=== PATIENT | female | born 1995 | race Caucasian/White ===

== ENCOUNTER 2017-11-27 13:25 | Inpatient (IN) | payer MEDICAID, SELFPAY ==
[2017-11-27 12:18] VITALS: BMI 33.9
[2017-11-27 12:43] LABS: Hematocrit 32.4 % (37-47); Hemoglobin 11.2 g/dl (12.0-15.0); Mean Corp Hgb Conc 34.6 g/gl (32-36); Mean Corpuscular Hgb 28.9 pg (27.0-32.0); Mean Corpuscular Volume 83.7 fL (81-99); Mean Platelet Vol. 10.2 fl (6.2-12.0); Platelet Count 201 K/mm3 (150-450); RBC Distribution Width CV 14.1 % (11.6-14.6); Red Blood Count 3.87 M/mm3 (4.2-5.4); Scan Indicated on CBC? Y/N NO; White Blood Count 9.1 K/mm3 (4.4-11.0)
[2017-11-27 12:50] LABS: Prothrombin Time (Protime)PT. 12.8 SECONDS (11.7-14.9)
[2017-11-27 12:51] LABS: Partial Thromboplast Time 26.8 Seconds (24.1-36.2)
[2017-11-27 13:03] LABS: AST(SGOT) 16 U/L (15-37); Alanine Aminotransfer ALT/SGPT 14 U/L (13-56); Creatinine, Serum 0.42 mg/dL (0.55-1.02); EST Glomerular Filtration Rate 202 mL/min (>60); Est Glom Filt Rate - Afr Amer 244 mL/min (>60); Estimated Creatinine Clearance 200.02 ml/min; Uric Acid 3.7 mg/dL (2.6-6.0)
[2017-11-27] MEDS: Lactated Ringers 1,000 ML 50 ML IV (14:00)
[2017-11-27] MEDS: miSOPROStol 25 MCG TABLET VAGINAL ×2 (14:49→18:49)
--- NOTE | 2017-11-27 19:14 | PCM.HP.OB ---
History Date of Admission: 11/27/17 Final PETE: 12/10/17 Final PETE Source: US <20 weeks Gestational age: 38 Weeks and 1 Days History of this : 22-year-old 1 para 0 female presents from the office today at 38-1/7 weeks gestation. Denies any vaginal bleeding, leaking of fluid, fevers, chills, headache or epigastric pain. She has had good movement. Since for the office for gestational hypertension. Pertinent Past Medical History: Anxiety Past surgical history: None Family medical history noncontributory Allergies sulfamethoxazole [From Bactrim] Allergy (Verified 09/23/17 01:05) Rash trimethoprim [From Bactrim] Allergy (Verified 09/23/17 01:05) Rash Current Medications Acetaminophen (Tylenol) 325 - 650 mg PO Q4H PRN PRN PRN Reason: PAIN OR FEVER >100.4F Al Hydroxide/Mg Hydroxide (Mylanta Ii) 15 - 30 ml PO Q4H PRN PRN PRN Reason: INDIGESTION Citric Acid/Sodium Citrate (Bicitra) 30 ml PO UD PRN Lactated Ringer's () 1,000 mls @ 50 mls/hr IV .Q20H [facility] Last Admin: 11/27/17 14:00 Dose: 50 mls/hr Misoprostol (Cytotec) 25 mcg VAGINAL Q4H [facility] Stop: 11/28/17 10:26 Last Admin: 11/27/17 18:49 Dose: 25 mcg Nalbuphine HCl (Nubain) 5 - 10 mg IV Q3H PRN PRN PRN Reason: PAIN (4-10/10) Ondansetron HCl (Zofran) 4 mg IV Q8H PRN PRN PRN Reason: NAUSEA Promethazine HCl (Phenergan (Ll)) 6.25 - 12.5 mg IV Q4H PRN PRN; Protocol PRN Reason: IF NAUSEA PERSISTS Sodium Chloride () 5 - 15 ml IV UD [facility] Last Admin: 11/27/17 18:22 Dose: Not Given Smoking Status: Former smoker Alcohol: None Drug Use: none Number of Fetus(es): 1 Review of Systems Constitutional: Denies: Anorexia, Chills Eyes: Denies: Blurred vision, Double vision Cardiovascular: Denies: Chest Pain Respiratory: Denies: Cough, Shortness of Breath Gastrointestinal: Denies: Abdominal Pain Physical Exam General: Alert, Cooperative, No apparent distress Cardiovascular: Regular Rhythm Lungs: Normal air movement Abdomen: Soft, Non Tender, Non-Distended, Gravid, Appropriate for Gestational Age Extremities:: Other - edema 1+ Estimated gestational size: Appropriate for gestational size Presentation: Cephalic Cervix Dilation (cm): 1 Station: -3 Effacement (%): 50 Assessment/Plan 22-year-old 1 para 0 female with elevated blood pressures in the at 38-1/7 weeks gestation No evidence of preeclampsia but she does have gestational hypertension. Response and alternatives to induction of labor been discussed with patient her questions were answered to her satisfaction she desires to proceed. When active labor ensues or with rupture of membranes will start group B strep prophylaxis. Estimated weight is less than 5000 g and pelvis is clinically adequate to expect vaginal delivery. Will May have epidural or nitrous oxide or Nubain as needed for pain control. Will monitor for signs and symptoms of severe preeclampsia.
--- NOTE | 2017-11-27 19:18 | HP.PCM_ITS ---
History Date of Admission: 11/27/17 Final PETE: 12/10/17 Final PETE Source: US <20 weeks Gestational age: 38 Weeks and 1 Days History of this : 22-year-old 1 para 0 female presents from the office today at 38-1/7 weeks gestation. Denies any vaginal bleeding, leaking of fluid, fevers, chills , headache or epigastric pain. She has had good movement. Since for the office for gestational hypertension. Pertinent Past Medical History: Anxiety Past surgical history: None Family medical history noncontributory Allergies sulfamethoxazole [From Bactrim] Allergy (Verified 09/23/17 01:05) Rash trimethoprim [From Bactrim] Allergy (Verified 09/23/17 01:05) Rash Current Medications Acetaminophen (Tylenol) 325 - 650 mg PO Q4H PRN PRN PRN Reason: PAIN OR FEVER >100.4F Al Hydroxide/Mg Hydroxide (Mylanta Ii) 15 - 30 ml PO Q4H PRN PRN PRN Reason: INDIGESTION Citric Acid/Sodium Citrate (Bicitra) 30 ml PO UD PRN Lactated Ringer's () 1,000 mls @ 50 mls/hr IV .Q20H [facility] Last Admin: 11/27/17 14:00 Dose: 50 mls/hr Misoprostol (Cytotec) 25 mcg VAGINAL Q4H [facility] Stop: 11/28/17 10:26 Last Admin: 11/27/17 18:49 Dose: 25 mcg Nalbuphine HCl (Nubain) 5 - 10 mg IV Q3H PRN PRN PRN Reason: PAIN (4-10/10) Ondansetron HCl (Zofran) 4 mg IV Q8H PRN PRN PRN Reason: NAUSEA Promethazine HCl (Phenergan (Ll)) 6.25 - 12.5 mg IV Q4H PRN PRN; Protocol PRN Reason: IF NAUSEA PERSISTS Sodium Chloride () 5 - 15 ml IV UD [facility] Last Admin: 11/27/17 18:22 Dose: Not Given Smoking Status: Former smoker Alcohol: None Drug Use: none Number of Fetus(es): 1 Review of Systems Constitutional: Denies: Anorexia, Chills Eyes: Denies: Blurred vision, Double vision Cardiovascular: Denies: Chest Pain Respiratory: Denies: Cough, Shortness of Breath Gastrointestinal: Denies: Abdominal Pain Physical Exam General: Alert, Cooperative, No apparent distress Cardiovascular: Regular Rhythm Lungs: Normal air movement Abdomen: Soft, Non Tender, Non-Distended, Gravid, Appropriate for Gestational Age Extremities:: Other - edema 1+ Estimated gestational size: Appropriate for gestational size Presentation: Cephalic Cervix Dilation (cm): 1 Station: -3 Effacement (%): 50 Assessment/Plan 22-year-old 1 para 0 female with elevated blood pressures in the at 38-1 /7 weeks gestation No evidence of preeclampsia but she does have gestational hypertension. Response and alternatives to induction of labor been discussed with patient her questions were answered to her satisfaction she desires to proceed. When active labor ensues or with rupture of membranes will start group B strep prophylaxis. Estimated weight is less than 5000 g and pelvis is clinically adequate to expect vaginal delivery. Will May have epidural or nitrous oxide or Nubain as needed for pain control. Will monitor for signs and symptoms of severe preeclampsia.
--- NOTE | 2017-11-27 21:47 | PCM.PN.BLA ---
Progress Note Getting more uncomfortable, crampy. Some ctxs. BP stable FHTs category 1 Cervix now 1/60/-2, soft and mid position. Mesa placed over stylette in usual sterile fashion and inflated to 30 cc, placement over internal os confirmed. Patient tolerated well. Start pitocin in 2-4 hrs if needed. Epidural if desires
[2017-11-27] MEDS: 0.9% Normal Saline 100 ML IV.SOLN. INTRA-UTER (21:55)
[2017-11-28] MEDS: Oxytocin 30 units/NS 500 ml 30 UNITS/500 ML IV.SOLN IV (05:24)
[2017-11-28] MEDS: Lactated Ringers 1,000 ML 50 ML IV ×2 (06:30→10:36)
[2017-11-28] MEDS: Mag Hydrox/Al Hydrox/Simeth 30 ML UDC PO (06:30)
--- NOTE | 2017-11-28 07:43 | PCM.PN.BLA ---
Progress Note pt seen at bedside and evaluated. VE: -80/-2 AROM performed and IFM placed. Clear fluid. Continue Pitocin at this time.
[2017-11-28] MEDS: Nalbuphine 10 MG/ML Ampul IV (08:18)
[2017-11-28] MEDS: Ondansetron 4 MG/2 ML Vial IV (09:32)
--- NOTE | 2017-11-28 13:11 | PCM.PN.BLA ---
Progress Note pt seen at bedside, VE: /0 station. Continue to labor. Anticipate
[2017-11-28] MEDS: Oxytocin 30 units/NS 500 ml 30 UNITS/500 ML IV.SOLN 334 UNITS IV (14:44)
--- NOTE | 2017-11-28 14:52 | PCM.OB.VAG ---
Vaginal Delivery Maternal Presentation: Medically Indicated Induction Method of Induction: Pitocin, Mesa Bulb Medical Reason for Induction: Gestational Hypertension Amniotic Membrane Rupture Type: Artificial Amniotic Fluid Description: Clear Final PETE: 12/10/17 Gestational age: 38 Weeks and 2 Days Date of Procedure: 11/28/17 Pre-Operative Diagnosis: gestational HTN, Term gestation Post-Operative Diagnosis: same, live male Surgery/ Procedure Performed: Spontaneous Vaginal Delivery Type of Anesthesia: Epidural Description of Procedure: of live male born without complication. Delayed cord clamping performed. Presentation: Vertex Placental Delivery Description: Spontaneous Placenta Disposition: [facility] Cord Vessel Description: 3 Vessels Nuchal Cord Compression: Without compression Cord Entanglement: None Drain: Mesa to straight drain Estimated Blood Loss: 250 Infant A gender: Male (1 minute): 8 (5 minute): 9 Episiotomy Description: None Laceration: Vaginal Extension/lac - repaired with 3-0 rapide, 1st degree Medications given after delivery: IV Pitocin Complications: None
[2017-11-28] MEDS: Oxytocin 30 units/NS 500 ml 30 UNITS/500 ML IV.SOLN 167 UNITS IV (15:15)
[2017-11-28] MEDS: Naproxen 250 MG Tablet PO (18:13)
[2017-11-28 21:39] VITALS: BP 141/80; PULSE 88; RESP 18; TEMP 36.6
[2017-11-29 01:00] VITALS: BP 127/89; PULSE 62; RESP 18; TEMP 36.6
[2017-11-29 03:50] VITALS: BP 133/85; PULSE 89; RESP 18; TEMP 36.6
[2017-11-29] MEDS: Naproxen 250 MG Tablet PO ×2 (04:41→17:55)
--- NOTE | 2017-11-29 07:39 | PCM.PN.OB ---
Subjective: pt seen at bedside, doing well. pain controlled. Lochia mild. Breast feeding. - Physical Exam General: Alert, Oriented x3 Abdomen: Soft, Non-Distended, - - fundus firm Extremities: No Calf Tenderness Vital Signs Temp Pulse Resp BP 97.9 F 89 18 133/85 H 11/29/17 03:50 11/29/17 03:50 11/29/17 03:50 11/29/17 03:50 Oxygen Delivery Method Room Air Weight: 95.254 kg Body Mass Index (BMI) 33.9 Intake and Output for Last 24 Hours 11/27/17 11/28/17 11/29/17 23:59 23:59 23:59 Intake Total 399 / 399 5730 / 5730 Output Total 900 / 900 4820 / 4820 Balance -501 / -501 910 / 910 Assessment/Plan PPD#1, doing well routine care pain mgmt
--- NOTE | 2017-11-29 07:43 | DCINST_ITS ---
Discharge Diet: No Restrictions Discharge Activity: Return to Normal Activity, May not drive while taking narcotic pain medications., May Shower May resume sexual activity in: 4-6 weeks Additional Activity Instructions:: Nothing in the vagina for 4-6 weeks. You may return to work/school in 6 weeks. Call your doctor if your incision/area has: Continuous Slow Oozing, Sudden Increased Bleeding, Increased Pain/ Swelling, Increased Redness, Foul Smelling Discharge Additional Instructions: If you experience any of the following, contact your healthcare provider. * Bleeding that soaks a pad every hour for 2 hours * Fever 100.4 or higher * Unrelieved incision or abdominal pain * Swelling, redness, discharge or bleeding from your incision or episiotomy site * Your incision begins to separate * Problems urinating (including inability to urinate or burning while urinating) . * Visual changes * Severe headache * Flu-like symptoms * Pain or redness in one of both of your breasts * Pain, warmth, tenderness or swelling in your legs, especially the calf area * Frequent nausea and vomiting * Symptoms of depression or anxiety If you experience any of the following, call 911 or go to the nearest Emergency Room. * Chest pain * Problems breathing * Seizure activity * Partial or complete paralysis of a body part, slurred speech, weakness or drooping of the face, or a sudden inability to walk or hold your balance Allergies/Adverse Reactions: Allergies sulfamethoxazole [From Bactrim] Allergy (Verified 09/23/17 01:05) Rash trimethoprim [From Bactrim] Allergy (Verified 09/23/17 01:05) Rash Medications to take at Discharge Cranberry Fruit Concentrate [Azo Cranberry] 250 mg PO DAILY 09/23/17 Vit Calc,Iron,Folic [ Vitamins] 1 each PO DAILY 09/23/17 Iron Bis-Gly/FA/C/B12/Ca/Succ [Iron 21/ Tablet] 1 each PO DAILY 11/27/17 Naproxen [Naprosyn] 250 - 500 mg PO Q8H PRN PRN #30 tab 11/29/17 Vits [Prenatabs FA ] 1 tablet PO DAILY@1200 tablet 11/29/17 The following prescriptions were given: Naproxen [Naprosyn] 250 - 500 mg PO Q8H PRN PRN #30 tab PRN Reason: MILD PAIN (1-3/10) When: Call to make an appointment with your doctor in 6 weeks. If you had elevated Blood Pressure or 4th degree laceration you will need to be seen in 2 weeks.
--- NOTE | 2017-11-29 09:12 | CASEMGMT ---
Social Work Assessment Face to face with the MOB d/t consult from primary WP SWCali, for Anxiety. Introduced self and role at [facility]. MOB's mother, father and significant other, Guru, present during assessment. MOB is alert and oriented x4, presents with pleasant affect as evidenced by smiling and willingness to participate in assessment. MOB is appropriate with infant throughout assessment and infant is resting on her chest in no apparent distress. MOB identifies her mother and Guru as her primary supports. MOB and FOB report to have adequate supports among their family. MOB is linked with [employer] and has already obtained a pump. Educated to [facility] and she declines at this time, but takes information. Discuss PP Depression with MOB and supports. Educate to signs/symptoms and to f/u with PCP or OBGYN if symptoms persist. Education packet provided and encouraged MOB and family to review upon homegoing and to remain alert to MOB's behaviors. Understanding expressed. Infant to be established with Abner Colbert MD and an appointment has not yet been made. MOB intends on calling on Friday to setup an appointment for next week. MOB reports to have all necessary supplies, and does not identify any additional needs at this time. Request that visitors exit the room. MOB denies physical, verbal or emotional abuse from her supports. MOB does report a history of anxiety. States that she was in counseling at 16 y/o, but has not been since and feels that her anxiety is managed well. She lists coping skills as deep breathing, positive self talk, and processing through discussion with her mother. Reports that she was on medication prior to her , but was not throughout. Intends on following up with her physician at discharge to discuss medication options with her PCP. Again review PP Depression with the MOB. No additional needs at this time. Anticipate discharge home within 24-48 hours. Sandra Khan, ESTHETICIAN PERMANENT MAKEUP ARTIST, [employer]
[2017-11-29 10:00] VITALS: BP 135/86; PULSE 88; RESP 16; TEMP 36.3
[2017-11-29] MEDS: Prenatal Vits Tablet 1 TABLET PO (10:49)
[2017-11-29] MEDS: Senna/Docusate Sodium 1 Tablet PO (10:49)
[2017-11-29 14:00] VITALS: BP 136/92; PULSE 66; RESP 14; TEMP 36.6
[2017-11-29 18:00] VITALS: BP 136/92; PULSE 66; RESP 16; TEMP 36.6
[2017-11-29 21:00] VITALS: BP 141/88; PULSE 91; RESP 17; TEMP 36.7
--- NOTE | 2017-11-29 23:23 | NURSING ---
Dr pastrana aware patient wanting discharged tonight if able, orders recieved to discharge patient if baby discharged tonight.
[2017-11-30 00:41] VITALS: BP 139/90; PULSE 99; RESP 18; TEMP 36.8; O2SAT 96
--- NOTE | 2017-11-30 00:44 | NURSING ---
patient refused mmr vaccine at this time
--- NOTE | 2017-11-30 08:25 | NURSING ---
late entry patient refused hands on bath demo, discussed bathing an infant and the proper steps to take
== END 2017-11-30 01:00 | disposition home or self-care (01) | DRG 372 ==
LOC: WPOUT 13:29
PROVIDERS: Obstetrics & Gynecology; Admitting Provider Obstetrics & Gynecology; Visit Provider Obstetrics & Gynecology
DX: O13.4 Gestational [pregnancy-induced] hypertension without significant proteinuria, complicating childbirth (principal); O70.0 First degree perineal laceration during delivery; Z37.0 Single live birth; Z87.891 Personal history of nicotine dependence; Z3A.38 38 weeks gestation of pregnancy
CPT/HCPCS: 36415; 59025; 59050; 82565; 84450; 84460; 84550; 85027; 85610; 85730; 86850; 86900; 99218; J7120; G0378; J2405

== ENCOUNTER → 2019-10-21 15:35 | Outpatient (CLI) | payer MEDICAID, SELFPAY | PROVIDERS: Referring Provider Ophthalmology; Visit Provider Ophthalmology | DX: H10.32 Unspecified acute conjunctivitis, left eye (principal) ==

== ENCOUNTER → 2023-01-09 | Outpatient (CLI) | payer MEDICAID, SELFPAY ==
[2023-01-17 13:58] LABS: HPV Reflexed? NOT INDICATED
== END | disposition home or self-care (01) ==
LOC: LABSPEC 14:41
PROVIDERS: PCP Nurse Practitioner Family; Visit Provider Nurse Practitioner Women's Health
DX: Z12.4 Encounter for screening for malignant neoplasm of cervix (principal)
CPT/HCPCS: 88175; G0145